=== PATIENT | female | born 1985 | race Caucasian/White ===

== ENCOUNTER 2023-09-22 01:30 | Emergency (ER) | payer OTHER, SELFPAY ==
[2023-09-22 01:31] VITALS: BP 119/66; PULSE 81; RESP 13; TEMP 36.8; O2SAT 99; BMI 28.6
[2023-09-22 01:35] VITALS: BP 119/66; PULSE 73; RESP 16; TEMP 36.8; O2SAT 100
[2023-09-22 02:07] LABS: Absolute Lymphocyte Count 1.91 X10^3/uL (0.83-4.51); Absolute Neutrophil Count 4.8 X10^3/uL (2.0-7.7); Basophil# 0.02 X10^3/uL; Basophil% 0.3 % (0-1); Eosinophil# 0.16 X10^3/uL; Eosinophils% 2.1 % (0-5); Hematocrit 38.3 % (37-47); Hemoglobin 12.9 g/dL (12.0-15.0); Lymphocyte # 1.91 X10^3/ul (0.83-4.51); Lymphocyte % 25.5 % (19-41); Mean Corp Hgb Conc 33.7 g/dL (32-36); Mean Corpuscular Hgb 29.7 pg (27.0-32.0); Mean Platelet Vol. 10.5 fl (6.2-12.0); Monocyte# 0.55 X10^3/uL; Monocyte% 7.3 % (0-10); NRBC Flagged by Analyzer 0 % (0-5); Neutrophil # 4.82 X10^3/uL (2.7-7.7); Neutrophil % 64.4 % (47-70); Platelet Count 183 K/mm3 (150-450); RBC Distribution Width CV 12.7 % (11.6-14.6); RBC Distribution Width SD 40.7 fl (35.1-43.9); Red Blood Count 4.35 M/mm3 (4.2-5.4); White Blood Count 7.5 K/mm3 (4.4-11.0)
[2023-09-22] MEDS: Ondansetron 4 MG/2 ML Vial IV (02:11)
[2023-09-22] MEDS: 0.9% Normal Saline (1000mL) 1,000 ML 999 ML IV (02:11)
[2023-09-22] MEDS: Ketorolac 30 MG/ML Syringe IV (02:11)
[2023-09-22 02:19] LABS: Bacteria 0 SEEN /hpf (None Seen); Mucous, Urine 0 SEEN /hpf (<or=2+); Red Blood Cells-Urine 0 SEEN /hpf (0-5); White Blood Cells 0 SEEN /hpf (0-5)
[2023-09-22 02:20] LABS: Color, Urine Straw (Yellow); Glucose, Dipstick Normal (Normal); Ketone-Dipstick Negative (Negative); Leukocyte Esterase-Dipstick Negative /ul (Negative); Nitrite-Dipstick Negative (Negative); Occult Blood-Urine Negative /ul (Negative); Protein-Dipstick Negative (Negative); Specific Gravity, Urine 1.015 (1.002-1.030); Urine Bilirubin Dipstick Negative (Negative); Urine Clarity Clear (Clear); Urine Urobilinogen Normal (Normal)
[2023-09-22 02:23] LABS: AST(SGOT) 17 U/L (15-37); Alanine Aminotransfer ALT/SGPT 38 U/L (13-56); Albumin, Serum 3.7 g/dL (3.2-5.0); Alkaline Phosphatase 39 U/L (45-117); Anion Gap 5 (5-15); BUN 14 mg/dL (7-18); BUN/Creat Ratio 21.3 RATIO (10-20); Bilirubin, Direct 0.11 mg/dL (0.00-0.30); Calcium,Total 8.8 mg/dL (8.5-10.1); Chloride 107 mmol/L (98-107); Creatinine, Serum 0.66 mg/dL (0.55-1.02); EST Glomerular Filtration Rate 108 mL/min (>60); Est Glom Filt Rate - Afr Amer 131 mL/min (>60); Estimated Creatinine Clearance 113.03 ml/min; Globulin 3.2 g/dL (2.2-4.2); Glucose 121 mg/dL (74-106); Lipase 45 U/L (13-75); Potassium 3.2 mmol/L (3.5-5.1); Protein, Total 6.9 g/dL (6.4-8.2); Sodium Level 139 mmol/L (136-145)
[2023-09-22 02:33] LABS: Internal QC Validated? YES +Cl - CLEAR BKGD; Pregnancy, Urine Negative Negative; Record Kit Lot#,Urine Preg 718086
[2023-09-22 02:34] LABS: Squamous Epithelial Cells - UA 0-5 SEEN /hpf (5-10)
--- NOTE | 2023-09-22 02:59 | EDS_ITS ---
HPI History of Present Illness Chief Complaint: Abd Pain Informant: patient and spouse/S.O. Narrative Narrative: Patient is a 38-year-old female with no significant past medical history. She states this evening roughly 2 to 3 hours prior to arrival she developed sharp upper abdominal pain with nausea. She denies any bouts of vomiting or diarrhea. She states that there is no dysuria or hematuria and she denies any concern for . She states the pain was not improving spontaneously which concerned her and therefore she comes in for evaluation. PFSH PFSH Medical History no medical history Allergy/AdvReac Type Severity Reaction Status Date / Time No Known Allergies Allergy Verified 09/22/23 01:38 Social History Smoking Status: Never smoker ROS ROS ED Constitutional Constitutional ED: Denies chills or fever(s) ENT ENT ED: Denies sore throat Cardiovascular Cardiovascular: Denies chest pain Respiratory/Chest Respiratory/Chest: Denies cough or dyspnea Gastrointestinal Gastrointestinal: Reports abdominal pain and nausea; Denies diarrhea or vomiting Genitourinary Genitourinary ED: Denies dysuria or hematuria Musculoskeletal Musculoskeletal: Denies back pain or myalgias Integumentary Denies rash Neurologic Neurologic: Denies headache(s) Hematologic/Lymphatic Hematologic/Lymphatic: Denies easy bleeding or easy bruising EXAM Physical Exam Const Vital Signs: 09/22/23 01:31 09/22/23 01:35 09/22/23 03:06 Temperature 98.3 F 98.3 F 97.6 F L Temperature Source Oral Oral Pulse Rate 81 73 67 Respiratory Rate 13 16 15 Blood Pressure 119/66 119/66 138/86 H Blood Pressure Mean 83 83 103 Pulse Ox 99 100 99 Oxygen Delivery Method Room Air Room Air Positive well nourished and well developed General Appearance ED: well developed; Negative for pallor HEENT Reports moist mucous membranes HEENT Narrative: No airway edema or compromise No signs of infection noted in the posterior pharynx Eyes PERRL and EOMs intact bilaterally General Eye ED: Negative for pale conjunctiva or scleral icterus Neck supple Resp normal respiratory effort and clear to auscultation bilaterally Cardio regular rate and regular rhythm Rate: other Other Details: Heart is regular rate and rhythm without murmurs rubs or gallop Radial and carotid pulses are equal and symmetric GI non-distended and no masses GI Narrative: Abdomen is soft and nondistended with normal active bowel sounds. Patient has mild pain with palpation in the midepigastric and right upper quadrant region. However no voluntary guarding or rigidity. No pulsatile mass or fluid wave. Negative Schwarz sign Auscultation: normoactive bowel sounds Palpation: soft Back/Spine no CVA tenderness Extremity normal to inspection Extremity Narrative: No asymmetric edema no pitting edema negative Homans' sign bilaterally Neuro oriented x3, CN's II-XII intact bilaterally and no sensory deficits noted Sensorium / Orientation: alert Motor Exam: strength 5/5 throughout Psych mental status grossly normal Skin no rashes or lesions noted, no wounds and skin turgor normal General Skin Exam: Negative for jaundice or pallor MDM MDM MDM Narrative Medical decision making narrative: Patient presented to the ER with stable vitals and a soft nonsurgical abdomen so I felt no need for emergent imaging studies. History of sudden onset sharp upper abdominal pain more in the right sided abdomen that has spontaneously improved is most concerning for biliary colic versus acute cholecystitis versus pancreatitis. This is also concern for pyelonephritis versus UTI versus kidney stone. Basic blood work was obtained which shows normal white count going against infection as well as normal liver enzymes going against acute cholecystitis and normal lipase going against pancreatitis. Patient's urine shows no sign of infection going as UTI/pyelonephritis and no blood going against kidney stone. Patient was hydrated and given Zofran and Toradol and reported resolution of her symptoms and her abdomen remains soft and nonsurgical. Therefore at this time patient's pain may be related to potential biliary colic but as she does not have signs of acute infection or gallstone pancreatitis and her symptoms have improved there is no need for inpatient workup and he is otherwise safe for discharge History & Record Review Discussion w/independent historian: Patient and Significant other Lab Data Attestation: I reviewed the patient's lab results. Labs: Laboratory Results - last 24 hr 09/22/23 09/22/23 01:40 02:05 WBC 7.5 RBC 4.35 Hgb 12.9 Hct 38.3 MCV 88.0 MCH 29.7 MCHC 33.7 RDW Std Deviation 40.7 RDW Coeff of [place] 12.7 Plt Count 183 MPV 10.5 Immature Gran % (Auto) 0.400 Neut % (Auto) 64.4 Lymph % (Auto) 25.5 [place] % (Auto) 7.3 Eos % (Auto) 2.1 Baso % (Auto) 0.3 Absolute Neuts (auto) 4.8 Absolute Lymphs (auto) 1.91 Nucleated RBC % 0 Sodium 139 Potassium 3.2 L Chloride 107 Carbon Dioxide 27.0 Anion Gap 5 BUN 14 Creatinine 0.66 Estim Creat Clear Calc 113.03 Est GFR (MDRD) Af Amer 131 Est GFR (MDRD) Non-Af 108 BUN/Creatinine Ratio 21.3 H Glucose 121 H Calcium 8.8 Total Bilirubin 0.40 Direct Bilirubin 0.11 AST 17 ALT 38 Alkaline Phosphatase 39 L Total Protein 6.9 Albumin 3.7 Globulin 3.2 Lipase 45 Urine Color Straw Urine Clarity Clear Urine pH 6.0 Ur Specific [place] 1.015 Urine Protein Negative Urine Glucose (UA) Normal Urine Ketones Negative Urine Occult Blood Negative Urine Nitrite Negative Urine Bilirubin Negative Urine Urobilinogen Normal Ur Leukocyte Esterase Negative Urine RBC 0 SEEN Urine WBC 0 SEEN Ur Squamous Epith Cells 0-5 SEEN Urine Bacteria 0 SEEN Urine Mucus 0 SEEN Urine Test Negative Discharge Plan Triage Chief Complaint: Abd Pain ED Provider: Amandeep Avilez Dx/Rx/DC Orders Clinical Impression: Nonspecific abdominal pain, Nausea Instructions: Abdominal Pain, ED Gallstones with Biliary Colic Primary Care Provider: Angelito Burgos Referrals: Angelito Burgos DO [Primary Care Provider] - Activity Restrictions/Additional Instructions: Your exam is concerning for potential gallbladder dysfunction or gallstones. Eat smaller more frequent bland meals to prevent recurrence of symptoms. Follow-up with your family doctor to discuss obtaining a outpatient gallbladder ultrasound and return to the ER should you have any further concerns. Disposition Disposition: Home, Self Care Discharge Date/Time: 09/22/23 03:07
[2023-09-22 03:06] VITALS: BP 138/86; PULSE 67; RESP 15; TEMP 36.4; O2SAT 99
== END 2023-09-22 03:07 | disposition home or self-care (01) ==
PROVIDERS: Emergency Provider Emergency Medicine; PCP Family Medicine; Visit Provider Emergency Medicine
DX: R10.11 Right upper quadrant pain (principal); R10.13 Epigastric pain; R11.0 Nausea
CPT/HCPCS: 80048; 80076; 81001; 81025; 83690; 85025; 96361; 96374; 96375; 99283; J7030; A4216; J2405

== ENCOUNTER → 2024-02-27 | Outpatient (CLI) | payer OTHER, SELFPAY ==
[2024-02-28 16:10] LABS: Beta-2-Glycoprotein I IgA <9 (0-25); Beta-2-Glycoprotein I IgG <9 (0-20); Beta-2-Glycoprotein I IgM <9 (0-32)
== END | disposition home or self-care (01) ==
PROVIDERS: PCP Family Medicine
DX: O22.30 Deep phlebothrombosis in pregnancy, unspecified trimester (principal); I82.409 Acute embolism and thrombosis of unspecified deep veins of unspecified lower extremity; Z3A.00 Weeks of gestation of pregnancy not specified
CPT/HCPCS: 36415; 86146